=== PATIENT | female | born 1970 | race Caucasian/White ===

== ENCOUNTER 2017-08-20 14:56 | Outpatient (RCR) | payer BC, OTHER ==
[2017-06-19 16:12] LABS: CREATININE SERUM 0.82 MG/DL (0.60-1.30)
== END 2017-09-17 | disposition home or self-care (01) ==
LOC: ONC 14:56
PROVIDERS: ATTEND Radiology Radiation Oncology
DX: Z51.0 Encounter for antineoplastic radiation therapy (principal); C21.8 Malignant neoplasm of overlapping sites of rectum, anus and anal canal; F17.210 Nicotine dependence, cigarettes, uncomplicated
CPT/HCPCS: 36415; 77300; 77301; 77334; 77336; 77338; 77386; 77470; 82565; 84520; 99204

== ENCOUNTER 2017-10-01 15:38 | Outpatient (RCR) | payer BC | END 2017-10-15 | disposition home or self-care (01) | LOC: ONC 15:38 | PROVIDERS: ATTEND Radiology Radiation Oncology | DX: C21.8 Malignant neoplasm of overlapping sites of rectum, anus and anal canal (principal); F17.210 Nicotine dependence, cigarettes, uncomplicated | CPT/HCPCS: 99213 ==

== ENCOUNTER 2018-02-04 14:53 | Outpatient (RCR) | payer BC | END 2018-05-05 | disposition home or self-care (01) | LOC: ONC 14:53 | PROVIDERS: ATTEND Radiology Radiation Oncology | DX: C21.8 Malignant neoplasm of overlapping sites of rectum, anus and anal canal (principal); F17.210 Nicotine dependence, cigarettes, uncomplicated | CPT/HCPCS: 99212 ==

== ENCOUNTER 2018-12-31 15:19 | Outpatient (RCR) | payer BC | END 2019-03-31 | disposition home or self-care (01) | LOC: ONC 15:19 | PROVIDERS: ATTEND Radiology Radiation Oncology | DX: C21.8 Malignant neoplasm of overlapping sites of rectum, anus and anal canal (principal); F17.210 Nicotine dependence, cigarettes, uncomplicated | CPT/HCPCS: 99213 ==

== ENCOUNTER 2019-04-08 15:05 | Outpatient (RCR) | payer BC | END 2019-07-07 | disposition home or self-care (01) | LOC: ONC 15:05 | PROVIDERS: ATTEND Radiology Radiation Oncology | DX: C21.8 Malignant neoplasm of overlapping sites of rectum, anus and anal canal (principal); F17.210 Nicotine dependence, cigarettes, uncomplicated | CPT/HCPCS: 99213 ==

== ENCOUNTER → 2019-12-24 | Outpatient (CLI) | payer BC | LOC: EDSTATUS 07-08 15:05 → ONC 03:06 | PROVIDERS: ATTEND Radiology Radiation Oncology | DX: C21.8 Malignant neoplasm of overlapping sites of rectum, anus and anal canal (principal); Z87.891 Personal history of nicotine dependence | CPT/HCPCS: 99213 ==

== ENCOUNTER → 2020-07-14 | Outpatient (CLI) | payer BC | LOC: ONC 08:44 | PROVIDERS: ATTEND Radiology Radiation Oncology | DX: C21.8 Malignant neoplasm of overlapping sites of rectum, anus and anal canal (principal) | CPT/HCPCS: 99213 ==

== ENCOUNTER → 2021-01-19 | Outpatient (CLI) | payer BC | LOC: ONC 13:51 | PROVIDERS: ATTEND Radiology Radiation Oncology | DX: Z53.9 Procedure and treatment not carried out, unspecified reason (principal) | CPT/HCPCS: 99213 ==